=== PATIENT | female | born 1990 | race Caucasian/White ===

== ENCOUNTER 2024-06-04 13:01 | Outpatient (AMB) | payer MEDICAID, SELFPAY ==
--- NOTE | 2024-06-04 13:04 | A.OFFVIS_ITS ---
Vital Signs 06/04/24 13:14 Height 5 ft 9 in Weight 285 lb 4.45 oz BMI 42.1 BP 132/72 Blood Pressure Location Rt brachial Pulse 78 Pulse Source Pulse Oximeter Pulse Oximetry (%) 98 Oxygen Delivery Method Room Air Intake Visit Reasons: Joint Pain Intake Note: Patient is here as a new patient, referred by her PCP, she presents symptoms of joint pain exacerbated by change in weather. She states when the weather gets bad, it's hard to even move, she has trigger finger, gets shots in her hand, she has been taking a 1000 mg Tylenol, and 800 mg of Motrin. She states it has been going on since she was in her 20's. Accompanied by: Mother Allergies aspirin [ASPIRIN] Allergy (Intermediate, Unverified 06/24/20 17:57) DIZZINESS acetaminophen [Vicodin] Allergy (Unknown, Verified 04/04/18 00:00) codeine [CODEINE] Allergy (Unknown, Unverified 06/24/20 17:57) NUMBNESS cyclobenzaprine Allergy (Unknown, Verified 04/04/18 00:00) hydrocodone [Vicodin] Allergy (Unknown, Verified 04/04/18 00:00) meloxicam [MELOXICAM] Allergy (Unknown, Unverified 06/24/20 17:57) ANAPHYLAXIS naproxen [NAPROXEN] Allergy (Unknown, Unverified 06/24/20 17:57) VOMITING From VICODIN Allergy (Mild, Uncoded 06/24/20 17:57) VOMITING From FLEXERIL Allergy (Unknown, Uncoded 06/24/20 17:57) UNK Medication List - Last Reconciled 06/04/24 by Abram Gamboa MD albuterol sulfate 90 mcg/actuation (Ventolin HFA) 2 puffs inhalation Q4H PRN budesonide-formoterol 80-4.5 mcg/actuation (Symbicort) 2 puffs inhalation BID jzuiyaarrs-rsxmgowrjfpec-yfnl 50-325-40 mg 1 tab PO Q6H PRN cariprazine (Vraylar) 1.5 mg PO DAILY clonidine HCl 0.2 mg PO BEDTIME clonidine HCl 0.1 mg PO BEDTIME furosemide 20 mg PO DAILY PRN hydrochlorothiazide 50 mg PO DAILY hydroxyzine HCl 25 - 50 mg PO BID PRN ibuprofen 800 mg PO TID PRN lidocaine 5% 1 patch topical DAILY lorazepam 0.5 mg PO BID PRN ondansetron 4 mg PO Q8H PRN quetiapine 100 mg PO BEDTIME semaglutide (weight loss) (Wegovy) 0.25 mg subcut QWEEK sumatriptan succinate mg PO topiramate 50 mg PO TID HPI Comments Details: This is a 33-year-old female who presents for evaluation of multiple joint pain. She stated that she was evaluated by a hyperion ess[employer] developer about 10 years ago and she had abnormal blood work, she was told that she has rheumatoid arthritis and she was given treatments. She does not recall the treatments. She stated that she saw them for about 8 months. Does not recall any DMARD treatments. She states that she has diffuse joint pain especially in her hands, neck, low back, knees, ankle and feet. This is associated with swelling. She received trigger finger injections in the right 3rd finger this year. She denies any fevers. She recently had a gastric sleeve procedure and lost some weight. Denies any skin rashes. Denies any history of DVT/PE. She had 4 pregnancies in total, she has 3 children, 1 miscarriage. [facility] Medical History Joint pain Obesity Surgical History H/O gastric sleeve Female Reproductive History Menstrual Total pregnancies: 4 Full term: 3 Ab induced: 1 Review of Systems Musc Reports back pain, Reports arthralgias, Reports joint swelling and Reports stiffness Skin/Breast Denies rash Physical Exam Vital Signs: Last Vital Signs Pulse 78 06/04/24 13:14 BP 132/72 06/04/24 13:14 Pulse Ox 98 06/04/24 13:14 Oxygen Delivery Method Room Air 06/04/24 13:14 BMI result Body Mass Index 42.1 Const General: cooperative, healthy appearing and comfortable Nutritional Appearance: obese morbidly obese Orientation/consciousness: patient oriented x3 Limitations: no limitations HEENT Head: Yes normocephalic and Yes atraumatic Mouth: moist mucous membranes Resp Effort & Inspection: normal respiratory effort and able to speak in complete sentences Auscultation: clear to auscultation bilaterally Cardio Rate: regular rate Skin General skin exam: no rashes or lesions noted Neuro General: patient oriented x3 Extrem Other: Multiple tender joints and myofascial areas No swollen joints noted Some triggering of flexor tendons of the right hand Normal nailfold capillaroscopy Normal range of motion of hands, wrists, elbows and shoulders without pain Some hyperextension of elbows Negative straight leg raise test bilaterally Assessment & Plan Assessment & Plan (1) Polyarthralgia: Code(s): M25.50 - Pain in unspecified joint Category: Medical Plan: This is a 33-year-old female who presents for evaluation of diffuse joint pain. She states that she was diagnosed with rheumatoid arthritis by a hyperion ess[employer] developer about 10 years ago but does not recall any DMARDs therapy. She only saw them for a few months. I will order comprehensive serology to screen for underlying autoimmune rheumatic disease. Check x-rays of involved joints Follow-up in 6-8 weeks Plan I spent 48 minutes reviewing patient's chart, evaluating patient, ordering diagnostic workup, counseling patient and documenting in the chart Orders: Orders C Reactive Protein Today M32.9 - Systemic lupus erythematosus, unspecified Hepatitis A,B,C Profile Today Z11.59 - Encounter for screening for other viral diseases T Spot TB Today Z11.7 - Encounter for testing for latent tuberculosis infection Anti Extractable Nuclear Ag Today M32.9 - Systemic lupus erythematosus, unspecified Complement C3 Today M32.9 - Systemic lupus erythematosus, unspecified Complement C4 Today M32.9 - Systemic lupus erythematosus, unspecified Protein Creatinine Ratio, Ur Today M32.9 - Systemic lupus erythematosus, unspecified UA w Microscopic Today M32.9 - Systemic lupus erythematosus, unspecified Sjogren's Antibodies Today M32.9 - Systemic lupus erythematosus, unspecified Rheumatoid Factor Today M25.50 - Pain in unspecified joint Cyclic Citrullinated Peptide Today M25.50 - Pain in unspecified joint XR hand wrist LT Today M25.50 - Pain in unspecified joint XR hand wrist RT Today M25.50 - Pain in unspecified joint XR foot RT min 3V Today M25.50 - Pain in unspecified joint XR lumbar spine 4V min Today M25.50 - Pain in unspecified joint Complete Blood Count Auto Diff Today M32.9 - Systemic lupus erythematosus, unspecified Comprehensive Met. Panel Today M32.9 - Systemic lupus erythematosus, unspecified Erythrocyte Sedimentation Rate Today M32.9 - Systemic lupus erythematosus, unspecified Immunofixation Pnl, Serum Today M32.9 - Systemic lupus erythematosus, unspecified Protein Electrophoresis, Serum Today M32.9 - Systemic lupus erythematosus, unspecified SYD Reflex Titer and Pattern Today M32.9 - Systemic lupus erythematosus, unspecified Anti DNA DS Antibody Today M32.9 - Systemic lupus erythematosus, unspecified DNA Double Stranded-Crithidia Today M32.9 - Systemic lupus erythematosus, unspecified XR foot LT min 3V Today M25.50 - Pain in unspecified joint XR ankle LT min 3V Today M25.50 - Pain in unspecified joint XR ankle RT min 3V Today M25.50 - Pain in unspecified joint Coding Level of Care Code New Pt Level 4 (02574) Diagnoses Polyarthralgia M25.50
[2024-06-04 13:14] VITALS: BP 132/72; PULSE 78; O2SAT 98; BMI 42.1
== END 2024-06-04 14:29 | disposition home or self-care (01) ==
PROVIDERS: PCP Nurse Practitioner Family; Referring Provider Nurse Practitioner Family; Visit Provider Student in an Organized Health Care Education/Training Program
DX: M25.50 Pain in unspecified joint (principal)
CPT/HCPCS: 99204

== ENCOUNTER 2024-06-04 13:01 | Outpatient (REF) | payer MEDICAID, SELFPAY ==
--- NOTE | ~2024-06-04 | XR_ITS ---
EXAMINATION: XR LUMBAR SPINE CLINICAL INFORMATION: Joint pain. COMPARISON: None available. TECHNIQUE: Five views of the lumbosacral spine. FINDINGS: Vertebral body heights are normal. No fracture or spondylolisthesis. Minimal left convex lumbar curvature, less than 10-degrees, centered at L4-L5. Intervertebral disc heights are maintained without significant degenerative disc disease. Bone mineralization is normal. Soft tissues are unremarkable. The sacroiliac joints are normal. XR/XR lumbar spine 4V min IMPRESSION: Minimal left convex lumbar curvature, less than 10-degrees. Otherwise, normal lumbar spine radiographs. No acute osseous findings. Electronically signed by: Jb Su MD 06/24/2024 10:44 PM EDT RP
--- NOTE | ~2024-06-04 | XR_ITS ---
EXAMINATION: XR ANKLE, RIGHT XR ANKLE, LEFT XR FOOT, RIGHT XR FOOT, LEFT CLINICAL INFORMATION: Joint pain. COMPARISON: None available. TECHNIQUE: AP, lateral, and mortise views of each ankle and AP, lateral, and oblique views of each foot. FINDINGS: RIGHT ANKLE: No fracture. Alignment is anatomic. Ankle mortise is symmetric. Joint spaces are maintained. No ankle joint effusion. Small enthesopathic spur is present at the Achilles tendon insertion on the calcaneus. LEFT ANKLE: No fracture. Alignment is anatomic. Ankle mortise is symmetric. Joint spaces are maintained. No ankle joint effusion. Small enthesopathic spur is present at the Achilles tendon insertion on the calcaneus. RIGHT FOOT: No fracture. Alignment is anatomic. No erosions. Joint spaces are maintained. Soft tissues are normal. LEFT FOOT: No fracture. Alignment is anatomic. No erosions. Joint spaces are maintained. Soft tissues are normal. XR/XR ankle LT min 3V IMPRESSION: 1. No acute osseous findings in the bilateral ankles and feet. No appreciable erosive changes. 2. Small enthesopathic spurs at the Achilles tendon insertions on the calcaneus. Electronically signed by: Jb Su MD 06/24/2024 10:44 PM EDT
--- NOTE | ~2024-06-04 | XR_ITS ---
EXAMINATION: XR ANKLE, RIGHT XR ANKLE, LEFT XR FOOT, RIGHT XR FOOT, LEFT CLINICAL INFORMATION: Joint pain. COMPARISON: None available. TECHNIQUE: AP, lateral, and mortise views of each ankle and AP, lateral, and oblique views of each foot. FINDINGS: RIGHT ANKLE: No fracture. Alignment is anatomic. Ankle mortise is symmetric. Joint spaces are maintained. No ankle joint effusion. Small enthesopathic spur is present at the Achilles tendon insertion on the calcaneus. LEFT ANKLE: No fracture. Alignment is anatomic. Ankle mortise is symmetric. Joint spaces are maintained. No ankle joint effusion. Small enthesopathic spur is present at the Achilles tendon insertion on the calcaneus. RIGHT FOOT: No fracture. Alignment is anatomic. No erosions. Joint spaces are maintained. Soft tissues are normal. LEFT FOOT: No fracture. Alignment is anatomic. No erosions. Joint spaces are maintained. Soft tissues are normal. XR/XR foot LT min 3V IMPRESSION: 1. No acute osseous findings in the bilateral ankles and feet. No appreciable erosive changes. 2. Small enthesopathic spurs at the Achilles tendon insertions on the calcaneus. Electronically signed by: Jb Su MD 06/24/2024 10:44 PM EDT
--- NOTE | ~2024-06-04 | XR_ITS ---
EXAMINATION: XR HAND/WRIST, RIGHT XR HAND/WRIST, LEFT CLINICAL INFORMATION: Joint pain. COMPARISON: None available. TECHNIQUE: PA, lateral, oblique, and scaphoid views of the each hand and wrist. FINDINGS: RIGHT HAND/WRIST: The bones and soft tissues are normal. No fracture. Alignment is anatomic. Joint spaces are maintained. No erosions or soft tissue calcifications. LEFT HAND/WRIST: The bones and soft tissues are normal. No fracture. Alignment is anatomic. Joint spaces are maintained. No erosions or soft tissue calcifications. XR/XR hand wrist RT IMPRESSION: Normal radiographs of the hands and wrists. Electronically signed by: Jb Su MD 06/24/2024 10:44 PM EDT RP
--- NOTE | ~2024-06-04 | XR_ITS ---
EXAMINATION: XR ANKLE, RIGHT XR ANKLE, LEFT XR FOOT, RIGHT XR FOOT, LEFT CLINICAL INFORMATION: Joint pain. COMPARISON: None available. TECHNIQUE: AP, lateral, and mortise views of each ankle and AP, lateral, and oblique views of each foot. FINDINGS: RIGHT ANKLE: No fracture. Alignment is anatomic. Ankle mortise is symmetric. Joint spaces are maintained. No ankle joint effusion. Small enthesopathic spur is present at the Achilles tendon insertion on the calcaneus. LEFT ANKLE: No fracture. Alignment is anatomic. Ankle mortise is symmetric. Joint spaces are maintained. No ankle joint effusion. Small enthesopathic spur is present at the Achilles tendon insertion on the calcaneus. RIGHT FOOT: No fracture. Alignment is anatomic. No erosions. Joint spaces are maintained. Soft tissues are normal. LEFT FOOT: No fracture. Alignment is anatomic. No erosions. Joint spaces are maintained. Soft tissues are normal. XR/XR foot RT min 3V IMPRESSION: 1. No acute osseous findings in the bilateral ankles and feet. No appreciable erosive changes. 2. Small enthesopathic spurs at the Achilles tendon insertions on the calcaneus. Electronically signed by: Jb Su MD 06/24/2024 10:44 PM EDT
--- NOTE | ~2024-06-04 | XR_ITS ---
EXAMINATION: XR HAND/WRIST, RIGHT XR HAND/WRIST, LEFT CLINICAL INFORMATION: Joint pain. COMPARISON: None available. TECHNIQUE: PA, lateral, oblique, and scaphoid views of the each hand and wrist. FINDINGS: RIGHT HAND/WRIST: The bones and soft tissues are normal. No fracture. Alignment is anatomic. Joint spaces are maintained. No erosions or soft tissue calcifications. LEFT HAND/WRIST: The bones and soft tissues are normal. No fracture. Alignment is anatomic. Joint spaces are maintained. No erosions or soft tissue calcifications. XR/XR hand wrist LT IMPRESSION: Normal radiographs of the hands and wrists. Electronically signed by: Jb Su MD 06/24/2024 10:44 PM EDT RP
--- NOTE | ~2024-06-04 | XR_ITS ---
EXAMINATION: XR ANKLE, RIGHT XR ANKLE, LEFT XR FOOT, RIGHT XR FOOT, LEFT CLINICAL INFORMATION: Joint pain. COMPARISON: None available. TECHNIQUE: AP, lateral, and mortise views of each ankle and AP, lateral, and oblique views of each foot. FINDINGS: RIGHT ANKLE: No fracture. Alignment is anatomic. Ankle mortise is symmetric. Joint spaces are maintained. No ankle joint effusion. Small enthesopathic spur is present at the Achilles tendon insertion on the calcaneus. LEFT ANKLE: No fracture. Alignment is anatomic. Ankle mortise is symmetric. Joint spaces are maintained. No ankle joint effusion. Small enthesopathic spur is present at the Achilles tendon insertion on the calcaneus. RIGHT FOOT: No fracture. Alignment is anatomic. No erosions. Joint spaces are maintained. Soft tissues are normal. LEFT FOOT: No fracture. Alignment is anatomic. No erosions. Joint spaces are maintained. Soft tissues are normal. XR/XR ankle RT min 3V IMPRESSION: 1. No acute osseous findings in the bilateral ankles and feet. No appreciable erosive changes. 2. Small enthesopathic spurs at the Achilles tendon insertions on the calcaneus. Electronically signed by: Jb Su MD 06/24/2024 10:44 PM EDT
[2024-06-04 14:09] LABS: MANUAL DIFF FLAG NO
[2024-06-04 15:04] LABS: Basophils Percent Auto 0.6 % (0-2); Eosinophils Absolute Auto 0.1 X10*3/uL (0.0-0.4); Eosinophils Percent Auto 2.1 % (0-4); Hematocrit 35.1 % (37.0-47.0); Hemoglobin 11.1 g/dl (12.0-16.0); Imm Gran Abs Auto 0.03 X10*3/uL (0.00-0.03); Imm Gran Pct Auto 0.5 % (0.0-0.4); Lymphocytes Absolute Auto 1.8 X10*3/uL (1.2-4.9); Lymphocytes Percent Auto 29.5 % (20-40); Mean Corpuscular HGB Conc 31.6 g/dl (31.0-35.0); Mean Corpuscular Hemoglobin 25.5 pg (27.0-33.0); Mean Corpuscular Volume 80.5 fL (80.0-98.0); Mean Platelet Volume 11.3 fL (9.4-12.3); Monocytes Absolute Auto 0.4 X10*3/uL (0.1-1.2); Monocytes Percent Auto 6.8 % (2-11); Neutrophils Absolute Auto 3.7 x10*3/uL (2.0-8.3); Neutrophils Percent Auto 60.5 % (45-73); Platelet Count 380 X10*3/uL (160-400); Red Blood Count 4.36 X10*6/uL (4.20-5.50); Red Cell Distribution Width 15.2 % (11.0-16.0); White Blood Count 6.2 X10*3/uL (4.8-10.8)
[2024-06-04 15:44] LABS: Erythrocyte Sedimentation Rate 17 MM/HR (0-20)
[2024-06-04 15:57] LABS: Rheumatoid Factor < 13.0 IU/mL (<15.0)
[2024-06-04 15:58] LABS: Alanine Aminotransferase 15 U/L (0-31); Alkaline Phosphatase 51 U/L (39-117); Anion Gap 14 (12-20); Aspartate Amino Transferase 13 U/L (5-31); Bilirubin Total 0.4 mg/dL (0.0-1.0); Blood Urea Nitrogen 8 mg/dL (9-16); C Reactive Protein 0.45 mg/dL (< or = 0.50); Calcium 9.4 mg/dL (8.4-10.2); Carbon Dioxide 25 mmol/L (22-29); Chloride 107 mmol/L (96-108); Estimated Glomerular Filt Rate > 60; Glucose Random 85 mg/dL (60-115); Potassium 3.1 mmol/L (3.3-5.1); Sodium 143 mmol/L (135-145); Total Protein 7.2 g/dL (6.5-8.0)
[2024-06-04 18:22] LABS: Appearance Urine Turbid; Color Urine Red; Glucose Urine UA Negative (Negative); Leukocyte Esterase Urine Moderate (2+) (Negative); Nitrite Urine Positive (Negative); PH 5.5 (5.0-9.0); Specific Gravity - Urine >= 1.030 (1.005-1.025); UMIC TRIGGER UA YES; Urine Blood Large (3+) (Negative); Urine Ketones >=160 mg/dL (Negative); Urine Protein 100 (2+) mg/dL (Neg-Trace)
[2024-06-04 18:25] LABS: Bacteria Urine 2+ (None Seen); Hyaline Casts Urine 0-2 /LPF (0-2); RBC Urine >20 /HPF (0-2); WBC Urine 21-50 /HPF (0-5)
[2024-06-04 18:52] LABS: Creatinine Urine 473.94 mg/dL; Protein/Creatinine Ratio, Ur 0.22 (<0.2); Total Protein Urine Random 105 mg/dL (<12)
[2024-06-05 04:21] LABS: HBc Num1 0.07 S/CO (0.00-0.79); HBsAGNum1 0.27 S/CO (0.00-0.99); Hepatitis A Antibody IgM 0.13 Index (0-0.79); Hepatitis B Core Antibody Nonreactive (Nonreactive); Hepatitis B Surface Antigen Negative (Negative); ~HepC Num1 0.14 S/CO (0.00-0.79); ~Hepatitis A Antibody IgM Nonreactive (Nonreactive); ~Hepatitis B Surface Antibody REACTIVE (Nonreactive); ~Hepatitis C Antibody Nonreactive (Nonreactive)
[2024-06-05 21:52] LABS: Prot Elec - Albumin 3.7 g/dL (3.8-4.8); Prot Elec - Alpha1 0.4 g/dL (0.2-0.3); Prot Elec - Alpha2 0.9 g/dL (0.5-0.9); Prot Elec - Beta 1 0.5 g/dL (0.4-0.6); Prot Elec - Beta 2 0.5 g/dL (0.2-0.5); Prot Elec - Gamma 1.3 g/dL (0.8-1.7); Prot Elec - Total Protein 7.2 g/dL (6.1-8.1)
[2024-06-05 22:23] LABS: Anti DNA DS Antibody 1 IU/mL; Antibody to SS-A Antigen <1.0 NEG AI (<1.0 NEG); Antibody to SS-B Antigen <1.0 NEG AI (<1.0 NEG); SM/Ribonucleoprotein Ab <1.0 NEG AI (<1.0 NEG); Smith Protein <1.0 NEG AI (<1.0 NEG)
[2024-06-05 22:59] LABS: Complement C3 156 mg/dL (83-193)
[2024-06-06 22:22] LABS: TS Negative Control Passed; TS Panel A 0; TS Panel B 0; TS Positive Control Passed; TSpotTB Negative (Negative)
[2024-06-09 09:13] LABS: Anti Nuclear Antibody Screen NEGATIVE (NEGATIVE)
[2024-06-11 08:04] LABS: Cyclic Citrullinated Peptide <16 UNITS
[2024-06-12 16:24] LABS: IgA 322 mg/dL (47-310); IgG 1262 mg/dL (600-1640); IgM 152 mg/dL (50-300)
[2024-06-15 15:09] LABS: DNAds, Crithidia Antibody Negative (Negative)
== END 2024-06-04 13:02 | disposition home or self-care (01) ==
LOC: HO.LAB 13:01
PROVIDERS: PCP Nurse Practitioner Family; Visit Provider Student in an Organized Health Care Education/Training Program
DX: M25.59 Pain in other specified joint (principal); Z11.59 Encounter for screening for other viral diseases; Z11.7 Encounter for testing for latent tuberculosis infection; M32.9 Systemic lupus erythematosus, unspecified
CPT/HCPCS: 36415; 72110; 73110; 73130; 73610; 73630; 80053; 81001; 82570; 82784; 84156; 84165; 85025; 85652; 86038; 86140; 86160; 86200; 86225; 86235; 86255; 86334; 86431; 86481; 86704; 86706; 86709; 86803; 87340; 99202